=== PATIENT | female | born 1970 | race Caucasian/White ===

== ENCOUNTER 2018-05-03 21:08 | Emergency (ER) | payer SELFPAY ==
[2018-05-03] MEDS ORDERED: Ketorolac 30 MG/ML SDV IVPUSH SCH (21:30)
[2018-05-03] MEDS ORDERED: Sodium Chloride 0.9% 1,000 ML IV SCH (21:30)
--- NOTE | 2018-05-03 21:33 | EDM.PDOC ---
ED HPI GENERAL MEDICAL PROBLEM - General Chief Complaint: Abdominal Pain Stated Complaint: GALLBLADDER ISSUES PAIN IN ABDOMINAL AND VAG AREA Time Seen by Provider: 05/03/18 21:27 Source of Information: Reports: Patient History Limitations: Reports: No Limitations - History of Present Illness INITIAL COMMENTS - FREE TEXT/NARRATIVE: 47-year-old female presents to the ED with her common-law boyfriend. They are from [place]. He is currently working in [place]. She presents with upper abdominal pain rating around to her right back and also pain in her lower abdomen. Apparently she has gallstones identified on recent MRI which she did bring with her. Her Medicaid was not up-to-date as they want to proceed with cholecystectomy at it was deferred because of insurance purposes. She's been eating fairly well. She did have supper tonight. She states her bowels are working normally. Only previous abdominal surgery is that of an appendectomy. Patient has tardive dyskinesia or Tourette's syndrome. She admits to using methamphetamines yesterday. Vital signs are normal. States it's mostly pain. She has no nausea or vomiting. Onset: Other (Has been having Proscar over a month.) Duration: Week(s):, Chronic Location: Reports: Abdomen (Primarily epigastric and right upper quadrant of the abdomen also pain in her lower abdomen radiating down into the vagina.) Quality: Reports: Ache, Other Severity: Moderate Improves with: Reports: None Worsens with: Reports: None Context: Denies: Activity, Exercise, Lifting, Sick Contact, Trauma, Other Associated Symptoms: Reports: No Other Symptoms. Denies: Confusion, Chest Pain , Cough, cough w sputum, Diaphoresis, Fever/Chills, Headaches, Loss of Appetite , Malaise, Nausea/Vomiting, Rash, Seizure, Shortness of Breath, Syncope Treatments HEALTH CARE COORDINATOR: Reports: Other (see below) (None.) Bilateral Groin Pain Score (Numeric/FACES): 10 - Related Data Allergies Allergy/AdvReac Type Severity Reaction Status Date / Time No Known Allergies Allergy Verified 05/03/18 21:25 Home Meds: Home Meds Cephalexin [Keflex] 500 mg PO DAILY 05/03/18 [History] Ketorolac [Toradol] 10 mg PO DAILY 05/03/18 [History] Ondansetron [Zofran] 4 mg PO Q6H PRN 05/03/18 [History] Doxycycline [Vibramycin] 100 mg PO BID #28 cap 05/04/18 [Rx] Furosemide [Lasix] 20 mg PO DAILY PRN #30 tab 05/04/18 [Rx] Past Medical History Psychiatric History: Reports: Addiction (Multiple substance abuse issues.), Bipolar, Psych Hospitalization(s), Psychosis, Other (See Below) (Tourette's syndrome) - Past Surgical History GI Surgical History: Reports: Appendectomy Social & Family History - Living Situation & Occupation Living situation: Reports: Single Occupation: Unemployed ED ROS GENERAL - Review of Systems Review Of Systems: See Below Constitutional: Reports: Chills, Malaise (Occasional chills). Denies: Fever, Fatigue, Decreased Appetite, Weight Loss HEENT: Reports: No Symptoms Respiratory: Reports: No Symptoms Cardiovascular: Reports: No Symptoms Endocrine: Reports: No Symptoms GI/Abdominal: Reports: Abdominal Pain (See history present illness) : Reports: No Symptoms Musculoskeletal: Reports: No Symptoms Skin: Reports: No Symptoms Neurological: Reports: No Symptoms Psychiatric: Reports: No Symptoms Hematologic/Lymphatic: Reports: No Symptoms Immunologic: Reports: No Symptoms ED EXAM, GI/ABD - Physical Exam Exam: See Below Exam Limited By: Physical Impairment (Patient has Tourette's and exhibit signs symptoms of almost a tardive dyskinesia pattern. Difficult to examine and difficult for her to make eye contact.) General Appearance: Alert Eyes: Bilateral: Normal Appearance (No scleral icterus) Throat/Mouth: Normal Inspection, Normal Lips, Normal Oropharynx Head: Atraumatic, Normocephalic Neck: Normal Inspection, Supple, Non-Tender, Full Range of Motion. No: Lymphadenopathy (L), Lymphadenopathy (R) Respiratory/Chest: Lungs Clear, Normal Breath Sounds, No Accessory Muscle Use, Respiratory Distress. No: Rhonchi, Wheezing Cardiovascular: Normal Peripheral Pulses (Resting tachycardia of 1 26/m), No Edema, No Gallop, Tachycardia GI/Abdominal Exam: Normal Bowel Sounds, Tender (Mild tenderness epigastrium and along the right costal margin but negative Lamas sign.), Abnormal Bowel Sounds (I'll sounds are decreased from the norm.), Other (Abdomen is firm and distended and not tympanitic to percussion.) Back Exam: Normal Inspection, Full Range of Motion. No: CVA Tenderness (L), CVA Tenderness (R) Extremities: Other (Patient states she has been bitten by a brown recluse spider left anterior leg and she has evidence of venous stasis dermatitis on the ulceration that formed in the left lower leg is nearly healed. She remains on antibiotics apparently for this.) Neurological: Alert, Oriented, CN II-XII Intact, Normal Cognition, Other ( Patient exhibits a choreoathetoid tardive dyskinesia pattern with continuous inability to hold still. Apparently she has Tourette's syndrome.) Skin Exam: Warm ( Eyes been on any antipsychotics at this time), Dry, Intact, Normal Color, No Rash Course - Vital Signs Last Recorded V/S: Last Vital Signs Temp 36.8 C 05/03/18 21:20 Pulse 126 H 05/03/18 21:20 Resp 22 H 05/03/18 21:20 BP 108/61 05/03/18 21:20 Pulse Ox 99 05/03/18 21:20 - Orders/Labs/Meds Orders: Active Orders 24 hr Category Date Time Status Abdomen 1V Flat [CR] Stat Exams 05/03/18 21:39 Taken URINALYSIS W/MICROSCOPIC [UA W/MICROSCOPIC] [URIN] Stat Lab 05/03/18 21:40 Ordered Labs: Laboratory Tests 05/03/18 05/03/18 05/03/18 Range/Units 22:35 22:35 22:35 WBC 10.25 H (3.98-10.04) K/mm3 RBC 3.94 L (3.98-5.22) M/mm3 Hgb 12.1 (11.2-15.7) gm/L Hct 35.3 (34.1-44.9) % MCV 89.6 (79.4-94.8) fl MCH 30.7 (25.6-32.2) pg MCHC 34.3 (32.2-35.5) g/dl RDW Std Deviation 46.4 H (36.4-46.3) fL Plt Count 191 (182-369) K/mm3 MPV 10.0 (9.4-12.3) fl Neutrophils % (Manual) 56 (40-60) % Band Neutrophils % 0 (0-10) % Lymphocytes % (Manual) 30 (20-40) % Atypical Lymphs % 0 % Monocytes % (Manual) 12 H (2-10) % Eosinophils % (Manual) 1 (0.7-5.8) % Basophils % (Manual) 1 (0.1-1.2) Platelet Estimate Adequate Plt Morphology Comment Normal Anisocytosis 1+ slight RBC Morph Comment Not Reportable Sodium 136 (136-145) mEq/L Potassium 3.8 (3.5-5.1) mEq/L Chloride 104 (98-107) mEq/L Carbon Dioxide 23 (21-32) mEq/L Anion Gap 12.8 (5-15) BUN 20 H (7-18) mg/dL Creatinine 1.0 (0.55-1.02) mg/dL Est Cr Clr Drug Dosing 2.83 mL/min Estimated GFR (MDRD) 60 (>60) mL/min BUN/Creatinine Ratio 20.0 H (14-18) Glucose 140 H (74-106) mg/dL Calcium 8.6 (8.5-10.1) mg/dL Total Bilirubin 1.4 H (0.2-1.0) mg/dL AST 129 H (15-37) U/L ALT 113 H (14-59) U/L Alkaline Phosphatase 69 (46-116) U/L Total Protein 8.3 H (6.4-8.2) g/dl Albumin 2.9 L (3.4-5.0) g/dl Globulin 5.4 gm/dL Albumin/Globulin Ratio 0.5 L (1-2) Lipase 199 (73-393) U/L HCG, Qual Negative (NEGATIVE) Meds: Medications Discontinued Medications Generic Name Dose Route Start Last Admin Trade Name Freq PRN Reason Stop Dose Admin Hyoscyamine 0.125 mg 05/03/18 21:39 05/03/18 22:52 Hyomax-Sl SL 05/03/18 21:40 0.125 mg ONETIME ONE Administration Sodium Chloride 1,000 mls @ 150 mls/hr 05/03/18 21:30 05/03/18 22:37 Normal Saline IV 150 mls/hr ASDIRECTED KIAH Administration Ketorolac Tromethamine 30 mg 05/03/18 21:30 05/03/18 22:38 Toradol IVPUSH 30 mg ONETIME KIAH Administration Magnesium Citrate 240 ml 05/04/18 01:12 05/04/18 01:26 Citrate Of Magnesia PO 05/04/18 01:13 240 ml ONETIME ONE Administration - Radiology Interpretation Free Text/Narrative:: 47-year-old female from [place] presents to the ED for evaluation of abdominal pain that she's had off and on for the last month. Apparently she was told she had gallstones on her MRI that she did bring along a disc of. This was done nearly a month ago. She's been eating fairly normally which is against a diagnosis of significant cholecystitis. Her abdomen is firm and distended but no evidence of gravid uterus identified. Plan IV normal saline at 150 mils per hour. Will give Toradol 30 mg IV at the labs are completed and a KUB is done. - Re-Assessments/Exams Free Text/Narrative Re-Assessment/Exam: 05/03/18 23:30 Labs are back. White count is 10.25 with normal differential of 56% neutrophils and no band cells. Hemoglobin is 12.1 with hematocrit of 35.3. Platelet count is under 91,000. Sodium 136 with a potassium of 3.8. Cord 104 with a bicarbonate of 23. And a gap is 12.8. BUNs 20 with a creatinine of 1.0. Estimated GFR is greater than 60. BUN/creatinine ratio is slightly elevated at 20 Glucose 140 with a calcium of 8.6. Total bilirubin mildly elevated at 1.4. AST is 129 with ALT of 113. Alkaline phosphatase normal at 69. Total protein is 8.3 with an albumin fraction slightly low at 2.9. HCG qualitative is negative. Lipase is also normal at 199. KUB reveals mildly increased stool with a lot of stool and air in the hepatic flexure of the colon. No bowel obstruction. Labs as noted above are completely normal. Urinalysis is pending. 05/04/18 01:20: Patient is on Cipro 500 mg twice daily and is highly unlikely that she would have any urinary tract infection. Therefore I canceled this test. She's feeling somewhat better after IV analgesia. Patient advised that possible cause of abdominal pain appears to be constipation. She'll give him a magnesium citrate 7 ounces by mouth with 6 ounces of juice to provide bowel cleanse later this morning. He is going to need an ultrasound of her gallbladder as an outpatient prior to having any surgeon have a look at her gallbladder to remove it. Tonight I do not feel it was part of her pain complex. Note of gallstones were apparently diagnosed with recent MRI of month ago in [place]. At present she doesn't have any insurance and didn't want to pursue further investigations in the ED. Also she'd eaten within the last 6 hours prior to coming into the ED. Departure - Departure Time of Disposition: :13 Disposition: Home, Self-Care 01 Condition: Fair Clinical Impression: Constipation by delayed colonic transit, Gallstones Abdominal pain Qualifiers: Abdominal location: periumbilical Qualified Code(s): R10.33 - Periumbilical pain - Discharge Information *PRESCRIPTION DRUG MONITORING PROGRAM REVIEWED*: Not Applicable *COPY OF PRESCRIPTION DRUG MONITORING REPORT IN PATIENT ALLISON: Not Applicable Prescriptions: Doxycycline [Vibramycin] 100 mg PO BID #28 cap Furosemide [Lasix] 20 mg PO DAILY PRN #30 tab PRN Reason: fluid retention in legs Instructions: Constipation, Adult Referrals: PCP,Not In Area [Primary Care Provider] - Forms: ED Department Discharge Additional Instructions: Evaluation in the emergency room tonight in regards to persistent abdominal pain off and on for the last month. MRI done in [place] a month ago did report on identification of gallstones. I was unable to look at your MRI tonight due to different computer codes. Evaluation was mostly that of lab tests which showed no signs of infection or inflammation of the gallbladder or pancreas to be causing your abdominal pain. It's unlikely that he would have any urinary tract infections due to being on antibiotic Cipro for your left leg infection. X-ray of the head and did show increased stool throughout the colon compatible with constipation. Suspect this is the major cause of your abdominal pain at this time. You do need to pursue an ultrasound of your gallbladder to confirm gallstones and then once you have appropriate medical insurance you could go ahead and seek out a surgeon and have your gallbladder removed. Suggest arranging follow-up with Dr. Melani Carpenter. When you're ready to make an appointment please phone [phone] to arrange an appointment. In the meantime treatment of your constipation issues 8 ounces of magnesium citrate to be taken by mouth once mixed with 6 ounces of juice of choice. This will usually start to work in 1-2 hours and bowels will usually move 3 or 4 times often ending in some diarrhea. Suggest use of MiraLAX powder 17 g once daily to prevent constipation from reoccurring. Secondly I will write a prescription for antibiotic medication called doxycycline 100 mg twice daily for the next 14 days to clear up infection in your left leg and dental infections. May start this after your Cipro is done. - My Orders Last 24 Hours: My Active Orders 05/03/18 21:39 Abdomen 1V Flat [CR] Stat 05/03/18 21:40 URINALYSIS W/MICROSCOPIC [UA W/MICROSCOPIC] [URIN] Stat - Assessment/Plan Last 24 Hours: My Active Orders 05/03/18 21:39 Abdomen 1V Flat [CR] Stat 05/03/18 21:40 URINALYSIS W/MICROSCOPIC [UA W/MICROSCOPIC] [URIN] Stat
[2018-05-03] MEDS ORDERED: Hyoscyamine 0.125 MG Tab.SL SL ONE (21:39)
[2018-05-04] MEDS ORDERED: Magnesium Citrate Solution 296 ML Bottle PO ONE (01:12)
--- NOTE | 2018-05-04 07:42 | CR ---
Abdomen: Supine view of of the abdomen was obtained. Comparison: No prior abdominal imaging. Bowel gas pattern is unremarkable. No abnormal calcifications or soft tissue abnormality seen. Bony structures are unremarkable. Impression: 1. Nothing acute is seen on supine abdominal x-ray. Diagnostic code #1
== END 2018-05-04 01:27 | disposition home or self-care (01) ==
LOC: JD.ED 21:08
DX: K59.01 Slow transit constipation (principal); K80.80 Other cholelithiasis without obstruction; F31.9 Bipolar disorder, unspecified; Z79.899 Other long term (current) drug therapy
CPT/HCPCS: 36415; 74018; 80053; 83690; 84703; 85007; 85027; 96361; 96374; 99284; A9270; J1885; J7040